=== PATIENT | female | born 1965 | race Caucasian/White ===

== ENCOUNTER → 2017-07-20 | Outpatient (CLI) | payer MEDICARE ==
[~2017-07-20] MED LIST: 'PARAFON FORTE500 M1 PO; ATIVAN1 MG PO; CLONAZEPAM0.5 M2 PO; CYCLOBENZAPRINE5 M3 PO; EFFEXOR XR75 M1 PO; PREDNISONE10 MG PO; RITALIN10 MG PO; SYMBICORT1 AER INH; VIVITROL380 MG IM; XANAX1 MG PO
== END | disposition home or self-care (01) ==
LOC: CARD 08:17
DX: F15.929 Other stimulant use, unspecified with intoxication, unspecified (principal)